=== PATIENT | female | born 1960 | race Two or more races ===

== ENCOUNTER 2022-05-29 09:19 | Outpatient (CLI) | payer OTHER | END 2022-05-29 09:28 | disposition home or self-care (01) | LOC: SONOGRAMA 09:19 | PROVIDERS: ATTEND Pathology Anatomic Pathology & Clinical Pathology | DX: D34 Benign neoplasm of thyroid gland (principal); E06.3 Autoimmune thyroiditis; E03.8 Other specified hypothyroidism ==